=== PATIENT | female | born 1950 | race Two or more races ===

== ENCOUNTER 2020-07-27 11:52 | Inpatient (IN) | payer OTHER ==
[2020-07-27] MEDS ORDERED: SODIUM CHLORIDE 1,000 ML IV SCH ×2 (12:30→17:30)
[2020-07-27] MEDS ORDERED: SODIUM CHLORIDE 0.9% 500 ML INFUS.BAG IV ONE ×2 (13:41→14:30)
[2020-07-27 13:49] LABS: BASO % 0.8 % (0-2.0); HEMOGLOBIN 11.7 GM/dL (10.7-15.3); LYMPH % 0.8 % (8-40); MCH 28.7 pg (25.7-33.7); MCHC 28.5 g/dl (32.0-36.0); MEAN CELL VOLUME 100.6 fl (80-96); MEAN PLT VOLUME 10.9 fl (7.5-11.1); MONO % 3.8 % (3.8-10.2); NEUT % 94.6 % (42.8-82.8); PLATELET COUNT 472 K/MM3 (134-434); RBC 4.07 M/mm3 (3.60-5.2); RDW 17.3 % (11.6-15.6); WHITE BLOOD COUNT 15.7 K/mm3 (4.0-10.0)
[2020-07-27 13:56] LABS: INR 1.02 (0.83-1.09); PROTHROMBIN TIME (PATIENT) 12.3 SEC (9.7-13.0)
[2020-07-27 13:59] LABS: ACTIVATED PTT 24.6 SECONDS (25.2-36.5)
[2020-07-27 14:06] LABS: URINE APPEARANCE CLOUDY; URINE BILIRUBIN NEGATIVE (NEGATIVE); URINE COLOR YELLOW; URINE GLUCOSE (UA) 3+ (NEGATIVE); URINE KETONE 1+ (NEGATIVE); URINE LEUK ESTERASE NEGATIVE (NEGATIVE); URINE NITRITE NEGATIVE (NEGATIVE); URINE PROTEIN NEGATIVE (NEGATIVE); URINE UROBILINOGEN 0.2 mg/dL (0.2-1.0)
[2020-07-27 14:07] LABS: CHLORIDE 82 mmol/L (98-107); MAGNESIUM 3.3 mg/dL (1.8-2.4); SODIUM 122 mmol/L (136-145)
[2020-07-27 14:09] LABS: ALBUMIN 3.7 g/dl (3.4-5.0); BLOOD UREA NITROGEN 44.5 mg/dL (7-18); CALCIUM 9.7 mg/dL (8.5-10.1); CO2 21 mmol/L (21-32)
[2020-07-27 14:12] LABS: PHOSPHOROUS 6.3 mg/dL (2.5-4.9); SGOT/AST 13 U/L (15-37); SGPT/ALT 29 U/L (13-61)
[2020-07-27 14:13] LABS: CREATININE 1.9 mg/dL (0.55-1.3)
[2020-07-27 14:14] LABS: TOT PROT 7.8 g/dl (6.4-8.2)
[2020-07-27 14:16] LABS: ALK PHOS 156 U/L (45-117)
[2020-07-27 14:23] LABS: ANION GAP 18 MMOL/L (8-16); BILIRUBIN,TOTAL 0.4 mg/dL (0.2-1)
[2020-07-27 14:28] LABS: GLUCOSE,RANDOM 1143 mg/dL (74-106)
[2020-07-27] MEDS ORDERED: INSULIN REGULAR HUMAN 100 UNITS/ML *VIAL SQ ONE (14:30)
[2020-07-27] MEDS ORDERED: INSULIN REGULAR HUMAN 100 UNITS/ML *VIAL IVPUSH ONE (14:55)
[2020-07-27] MEDS ORDERED: CALCIUM GLUCONATE 10% - 1,000 MG/10 ML VIAL IVPB ONE (16:15)
[2020-07-27] MEDS ORDERED: INSULIN REGULAR 100 UNITS in SODIUM CHLORIDE 99 ML IVPB SCH ×2 (16:15→17:15)
[2020-07-27 16:33] LABS: VENOUS BASE EXCESS -9.9 mmol/L (-2-2); VENOUS O2 SATURATION 35.3 % (70-80); VENOUS PCO2 50.4 mmHg (38-52)
[2020-07-27 16:40] LABS: CALCIUM 9.4 mg/dL (8.5-10.1)
[2020-07-27 16:41] LABS: BLOOD UREA NITROGEN 45.6 mg/dL (7-18)
[2020-07-27 16:44] LABS: CREATININE 1.8 mg/dL (0.55-1.3)
[2020-07-27 16:46] LABS: VENOUS PH 7.182 (7.310-7.410)
[2020-07-27] MEDS ORDERED: SODIUM CHLORIDE 0.9%/KCL 20 MEQ/1,000 ML INFUS.BAG IV SCH ×2 (17:00)
[2020-07-27] MEDS ORDERED: INSULIN DRIP - PLEASE ORDER UNDER SETS NR ONE (17:13)
[2020-07-27] MEDS ORDERED: DEXTROSE 50%-WATER - 25 GM/50 ML VIAL IVPUSH PRN (17:14)
[2020-07-27] MEDS ORDERED: CALCIUM GLUCONATE 10% - 1,000 MG/10 ML VIAL ONE (17:15)
[2020-07-27 19:47] LABS: CALCIUM 9.7 mg/dL (8.5-10.1)
[2020-07-27 19:48] LABS: BLOOD UREA NITROGEN 39.9 mg/dL (7-18)
[2020-07-27 19:50] LABS: CREATININE 1.5 mg/dL (0.55-1.3)
[2020-07-27] MEDS ORDERED: MELATONIN 5 MG TABLETS PO PRN (20:51)
[2020-07-27] MEDS ORDERED: ACETAMINOPHEN 325 MG TABLET (FP) PO PRN (20:52)
[2020-07-27] MEDS: HEPARIN NA (PORCINE) 5,000 UNITS/ML 1ML VIAL SQ SCH (21:42)
[2020-07-27] MEDS: MUPIROCIN 2% TOPICAL OINTMENT FOR DECOLONIZATION NS SCH (21:48)
[2020-07-27] MEDS ORDERED: CHLORHEXIDINE GLUCONATE 4% CLEANSER FOR DECOLONIZATION TP SCH (22:00)
[2020-07-27 22:32] LABS: BLOOD UREA NITROGEN 38.4 mg/dL (7-18); CALCIUM 9.3 mg/dL (8.5-10.1)
[2020-07-27 22:35] LABS: CHOLESTEROL 148 mg/dL (50-200); TRIGLYCERIDES 149 mg/dL (0-150)
[2020-07-27 22:36] LABS: CREATININE 1.2 mg/dL (0.55-1.3); LDL CHOLESTEROL (ONLY SJRH) 70 mg/dL (5-100)
[2020-07-27 22:38] LABS: HDL CHOLESTEROL 66 mg/dL (40-60)
[2020-07-28] MEDS ORDERED: D5-1/2NS+20 MEQ KCL - 20 MEQ/1,000 ML INFUS.BAG IV SCH (00:15)
[2020-07-28] MEDS ORDERED: HYDROmorphone HCl 2 MG/ML VIAL IVPUSH ONE (00:28)
[2020-07-28] MEDS: HEPARIN NA (PORCINE) 5,000 UNITS/ML 1ML VIAL SQ SCH ×3 (07:05→21:05)
[2020-07-28 07:12] LABS: BASO % 0.4 % (0-2.0); EOS % 0.1 % (0-4.5); HEMATOCRIT 35.3 % (32.4-45.2); HEMOGLOBIN 11.1 GM/dL (10.7-15.3); LYMPH % 3.3 % (8-40); MCHC 31.5 g/dl (32.0-36.0); MEAN CELL VOLUME 92.3 fl (80-96); MEAN PLT VOLUME 9.8 fl (7.5-11.1); MONO % 5.6 % (3.8-10.2); NEUT % 90.6 % (42.8-82.8); PLATELET COUNT 394 K/MM3 (134-434); RBC 3.82 M/mm3 (3.60-5.2); RDW 16.1 % (11.6-15.6); WHITE BLOOD COUNT 17.8 K/mm3 (4.0-10.0)
[2020-07-28 07:23] LABS: ALBUMIN 2.9 g/dl (3.4-5.0); CALCIUM 8.6 mg/dL (8.5-10.1)
[2020-07-28 07:24] LABS: BLOOD UREA NITROGEN 39.9 mg/dL (7-18); MAGNESIUM 2.6 mg/dL (1.8-2.4)
[2020-07-28 07:26] LABS: CREATININE 1.3 mg/dL (0.55-1.3); PHOSPHOROUS 4.9 mg/dL (2.5-4.9)
[2020-07-28 07:28] LABS: BILIRUBIN,TOTAL 0.2 mg/dL (0.2-1); TOT PROT 6.4 g/dl (6.4-8.2)
[2020-07-28] MEDS ORDERED: INSULIN (LEVEMIR) 100 UNITS/ML UNITS SQ SCH (08:30)
[2020-07-28] MEDS: MUPIROCIN 2% TOPICAL OINTMENT FOR DECOLONIZATION NS SCH (11:40)
[2020-07-28] MEDS ORDERED: DEXTROSE 5%-0.45% SALINE 1,000 ML IV SCH (12:00)
[2020-07-28 14:06] LABS: CALCIUM 8.5 mg/dL (8.5-10.1)
[2020-07-28 14:07] LABS: BLOOD UREA NITROGEN 38.5 mg/dL (7-18)
[2020-07-28 14:10] LABS: CREATININE 0.9 mg/dL (0.55-1.3)
[2020-07-28] MEDS ORDERED: DEXTROSE 50%-WATER - 25 GM/50 ML VIAL IVPUSH PRN (16:50)
[2020-07-28] MEDS ORDERED: MELATONIN 5 MG TABLETS PO PRN (16:50)
[2020-07-28] MEDS: INSULIN SLIDING SCALE (NOVOLOG) 1 VIAL SQ SCH ×2 (17:15→21:06)
[2020-07-28] MEDS ORDERED: INSULIN (NOVOLOG) ASPART 100 UNITS/ML 10ML VIAL SQ ONE (18:07)
[2020-07-28] MEDS: INSULIN (LEVEMIR) 100 UNITS/ML UNITS SQ SCH (21:05)
[2020-07-28] MEDS ORDERED: MUPIROCIN 2% TOPICAL OINTMENT FOR DECOLONIZATION NS SCH (22:00)
[2020-07-29] MEDS: HEPARIN NA (PORCINE) 5,000 UNITS/ML 1ML VIAL SQ SCH ×3 (06:14→21:28)
[2020-07-29] MEDS: INSULIN SLIDING SCALE (NOVOLOG) 1 VIAL SQ SCH ×4 (06:14→21:29)
[2020-07-29] MEDS ORDERED: MELATONIN 5 MG TABLETS PO PRN (08:08)
[2020-07-29] MEDS ORDERED: LACTATED RINGERS SOLUTION 1,000 ML/1,000 ML INFUS.BAG IV SCH ×3 (08:15→10:26)
[2020-07-29 09:06] LABS: HEMATOCRIT 31.9 % (32.4-45.2); HEMOGLOBIN 10.3 GM/dL (10.7-15.3); MCH 29.2 pg (25.7-33.7); MCHC 32.3 g/dl (32.0-36.0); MEAN CELL VOLUME 90.4 fl (80-96); MEAN PLT VOLUME 9.7 fl (7.5-11.1); RBC 3.53 M/mm3 (3.60-5.2); RDW 15.5 % (11.6-15.6); WHITE BLOOD COUNT 10.4 K/mm3 (4.0-10.0)
[2020-07-29 09:27] LABS: CALCIUM 8.2 mg/dL (8.5-10.1)
[2020-07-29 09:28] LABS: ALBUMIN 2.6 g/dl (3.4-5.0); BLOOD UREA NITROGEN 20.2 mg/dL (7-18); MAGNESIUM 1.9 mg/dL (1.8-2.4)
[2020-07-29 09:31] LABS: CREATININE 0.7 mg/dL (0.55-1.3)
[2020-07-29 09:32] LABS: BILIRUBIN,TOTAL 0.4 mg/dL (0.2-1)
[2020-07-29 09:33] LABS: TOT PROT 5.8 g/dl (6.4-8.2)
[2020-07-29] MEDS: INSULIN (LEVEMIR) 100 UNITS/ML UNITS SQ SCH ×2 (10:55→21:28)
[2020-07-29 11:24] LABS: PLATELET COUNT 254 K/MM3 (134-434)
[2020-07-29] MEDS ORDERED: ALBUTEROL SO4 HFA INHALER IH PRN (12:14)
[2020-07-29] MEDS ORDERED: PANTOPRAZOLE 20 MG TABLET PO SCH (12:15)
[2020-07-29] MEDS ORDERED: LISINOPRIL 20 MG TABLET PO SCH (12:15)
[2020-07-29 16:27] VITALS: BMI 31.1
[2020-07-29] MEDS: ACETAMINOPHEN 325 MG TABLET (FP) PO PRN (17:00)
[2020-07-29] MEDS ORDERED: metoPROLOL SUCCINATE 25 MG TAB.SR.24H (FP) PO ONE (18:55)
[2020-07-29] MEDS ORDERED: ATORVASTATIN CA 20 MG TABLET (FP) PO SCH (22:00)
[2020-07-30] MEDS: ACETAMINOPHEN 325 MG TABLET (FP) PO PRN (06:10)
[2020-07-30] MEDS: INSULIN (LEVEMIR) 100 UNITS/ML UNITS SQ SCH ×2 (06:11→21:35)
[2020-07-30] MEDS: HEPARIN NA (PORCINE) 5,000 UNITS/ML 1ML VIAL SQ SCH ×3 (06:11→21:35)
[2020-07-30] MEDS: INSULIN SLIDING SCALE (NOVOLOG) 1 VIAL SQ SCH ×4 (06:11→21:36)
[2020-07-30] MEDS: FOLIC ACID 1 MG TABLET (FP) PO SCH (12:42)
[2020-07-30 15:53] LABS: BASO % 0.2 % (0-2.0); EOS % 1.3 % (0-4.5); HEMATOCRIT 32.1 % (32.4-45.2); HEMOGLOBIN 10.2 GM/dL (10.7-15.3); LYMPH % 3.2 % (8-40); MCH 29.1 pg (25.7-33.7); MCHC 31.8 g/dl (32.0-36.0); MEAN CELL VOLUME 91.7 fl (80-96); MEAN PLT VOLUME 10.1 fl (7.5-11.1); MONO % 6.6 % (3.8-10.2); NEUT % 88.7 % (42.8-82.8); PLATELET COUNT 237 K/MM3 (134-434); RDW 15.9 % (11.6-15.6); WHITE BLOOD COUNT 9.1 K/mm3 (4.0-10.0)
[2020-07-30 16:16] LABS: ALBUMIN 2.4 g/dl (3.4-5.0); CALCIUM 7.8 mg/dL (8.5-10.1)
[2020-07-30 16:20] LABS: CREATININE 0.7 mg/dL (0.55-1.3)
[2020-07-30 16:21] LABS: BILIRUBIN,TOTAL 0.3 mg/dL (0.2-1); TOT PROT 5.7 g/dl (6.4-8.2)
[2020-07-30] MEDS: PANTOPRAZOLE 40 MG TABLET PO SCH (20:43)
[2020-07-31] MEDS: HEPARIN NA (PORCINE) 5,000 UNITS/ML 1ML VIAL SQ SCH ×3 (06:28→23:06)
[2020-07-31] MEDS: INSULIN (LEVEMIR) 100 UNITS/ML UNITS SQ SCH ×2 (06:28→23:07)
[2020-07-31] MEDS: INSULIN SLIDING SCALE (NOVOLOG) 1 VIAL SQ SCH ×4 (06:28→23:00)
[2020-07-31] MEDS ORDERED: INSULIN (NOVOLOG) ASPART 100 UNITS/ML 10ML VIAL ONE ×2 (07:06→19:56)
[2020-07-31] MEDS: FOLIC ACID 1 MG TABLET (FP) PO SCH (09:08)
[2020-07-31] MEDS: PANTOPRAZOLE 40 MG TABLET PO SCH (09:08)
[2020-07-31 10:58] LABS: HEMATOCRIT 31.8 % (32.4-45.2); HEMOGLOBIN 10.1 GM/dL (10.7-15.3); MCH 28.8 pg (25.7-33.7); MCHC 31.9 g/dl (32.0-36.0); MEAN CELL VOLUME 90.1 fl (80-96); MEAN PLT VOLUME 9.8 fl (7.5-11.1); PLATELET COUNT 249 K/MM3 (134-434); RBC 3.53 M/mm3 (3.60-5.2); RDW 15.8 % (11.6-15.6); WHITE BLOOD COUNT 10.3 K/mm3 (4.0-10.0)
[2020-07-31 11:17] LABS: ALBUMIN 2.3 g/dl (3.4-5.0); CALCIUM 7.6 mg/dL (8.5-10.1)
[2020-07-31 11:18] LABS: BLOOD UREA NITROGEN 6.7 mg/dL (7-18); MAGNESIUM 1.5 mg/dL (1.8-2.4)
[2020-07-31 11:20] LABS: CREATININE 0.5 mg/dL (0.55-1.3); PHOSPHOROUS 2.3 mg/dL (2.5-4.9)
[2020-07-31 11:22] LABS: BILIRUBIN,TOTAL 0.2 mg/dL (0.2-1); TOT PROT 5.8 g/dl (6.4-8.2)
[2020-07-31] MEDS ORDERED: MAGNESIUM SULF 50% (8.12 MEQ/2 ML-1 GM VIAL) IVPB ONE (11:41)
[2020-07-31] MEDS ORDERED: NAPH,MB-DB/K PH,MBDB POWDER PACKET PO ONE (11:42)
[2020-08-01] MEDS: INSULIN SLIDING SCALE (NOVOLOG) 1 VIAL SQ SCH ×3 (06:54→16:32)
[2020-08-01] MEDS: INSULIN (LEVEMIR) 100 UNITS/ML UNITS SQ SCH (06:54)
[2020-08-01] MEDS: HEPARIN NA (PORCINE) 5,000 UNITS/ML 1ML VIAL SQ SCH ×2 (06:55→14:09)
[2020-08-01] MEDS: FOLIC ACID 1 MG TABLET (FP) PO SCH (09:17)
[2020-08-01] MEDS: PANTOPRAZOLE 40 MG TABLET PO SCH (09:17)
[2020-08-01 09:53] LABS: HEMATOCRIT 31.3 % (32.4-45.2); MCH 29.1 pg (25.7-33.7); MCHC 32.1 g/dl (32.0-36.0); MEAN CELL VOLUME 90.8 fl (80-96); MEAN PLT VOLUME 9.5 fl (7.5-11.1); PLATELET COUNT 294 K/MM3 (134-434); RBC 3.44 M/mm3 (3.60-5.2); RDW 15.1 % (11.6-15.6); WHITE BLOOD COUNT 8.7 K/mm3 (4.0-10.0)
[2020-08-01 10:21] LABS: ALBUMIN 2.4 g/dl (3.4-5.0); BLOOD UREA NITROGEN 4.3 mg/dL (7-18)
[2020-08-01 10:22] LABS: MAGNESIUM 1.8 mg/dL (1.8-2.4)
[2020-08-01 10:24] LABS: PHOSPHOROUS 2.8 mg/dL (2.5-4.9)
[2020-08-01 10:25] LABS: CREATININE 0.5 mg/dL (0.55-1.3)
[2020-08-01 10:26] LABS: BILIRUBIN,TOTAL 0.6 mg/dL (0.2-1)
[2020-08-01] MEDS ORDERED: INSULIN (NOVOLOG) ASPART 100 UNITS/ML 10ML VIAL ONE (11:30)
[2020-08-01] MEDS ORDERED: LISINOPRIL 20 MG TABLET PO ONE (13:55)
[2020-08-01] MEDS ORDERED: ACETAMINOPHEN 325 MG TABLET (FP) PO ONE (14:29)
[2020-08-01 15:53] VITALS: TEMP 99.7
[2020-08-01 15:56] VITALS: BP 140/64; PULSE 108
== END 2020-08-01 17:00 | disposition home or self-care (01) | DRG 637 ==
LOC: JER 11:52 → JERBED 16:31 → JICU 19:53 → J5S 07-28 14:59
PROVIDERS: ADMIT Internal Medicine Pulmonary Disease; ATTEND Internal Medicine
DX: E11.10 Type 2 diabetes mellitus with ketoacidosis without coma (principal); K85.90 Acute pancreatitis without necrosis or infection, unspecified; N17.9 Acute kidney failure, unspecified; E11.65 Type 2 diabetes mellitus with hyperglycemia; I10 Essential (primary) hypertension; M06.9 Rheumatoid arthritis, unspecified; J44.9 Chronic obstructive pulmonary disease, unspecified; R35.8 Other polyuria; D72.829 Elevated white blood cell count, unspecified; E87.5 Hyperkalemia; K76.0 Fatty (change of) liver, not elsewhere classified; R16.0 Hepatomegaly, not elsewhere classified; E86.0 Dehydration; K21.9 Gastro-esophageal reflux disease without esophagitis
CPT/HCPCS: 36415; 71045-TC-FY; 74181-TC; 76700-TC; 80048; 80053; 80061; 81003; 82010; 82728; 82803; 82962; 83036; 83615; 83690; 83721; 83735; 84100; 84443; 84484; 85025; 85027; 85379; 85610; 85651; 85730; 86140; 86301; 87086; 93005; 93010; 94010; 99285-25; C9803; J1644; U0003